=== PATIENT | male | born 1980 | race African-American/Black ===

== ENCOUNTER 2021-04-03 12:58 | Emergency (ER) | payer OTHER ==
[2021-04-03 13:29] VITALS: BP 126/81; PULSE 88; TEMP 98.7; BMI 30.8
== END 2021-04-03 14:35 | disposition home or self-care (01) ==
LOC: JER 12:58 → JCOVINFU 12:58
DX: U07.1 COVID-19 (principal)
CPT/HCPCS: 99283-25